=== PATIENT | female | born 1995 | race African-American/Black ===

== ENCOUNTER 2017-05-10 08:01 | Emergency (ER) | payer OTHER ==
[2017-05-10 08:05] VITALS: BP 127/70
[2017-05-10] MEDS ORDERED: ACETAMINOPHEN 650 MG/20.3 ML SOLUTION. PO ONE (08:45)
[2017-05-10] MEDS ORDERED: DEXAMETHASONE SOD PHOS 10 MG/ML VIAL PO ONE (08:45)
[2017-05-10] MEDS ORDERED: KETOROLAC 60 MG/2 ML VIAL. IM ONE (08:45)
[2017-05-10] MEDS ORDERED: NAPR275T59 PO (08:50)
[2017-05-10] MEDS ORDERED: AZIT250T6 PO (08:50)
[2017-05-10] MEDS ORDERED: ACET325T9 PO (08:50)
--- NOTE | 2017-05-10 08:50 | PHYS DOC ---
Past History Past Medical History: No Pertinent History Past Surgical History: No Surgical History Alcohol Use: Occasionally Drug Use: None Adult General Chief Complaint Chief Complaint: SORE THROAT HPI HPI Patient is a pleasant 22-year-old female with a one-month history of sore throat. She's been seen by her primary care doctor to look her throat and saw no exudates swelling or erythema and told her it was likely a virus. At this point patient pain is gotten worse although she's got no change in voice, anterior neck swelling or fullness, she's had low-grade fevers nothing documented no headache neck pain but has had a nonproductive cough. She does also describes significant fatigue over the last several weeks. She admits she' s had multiple sick contacts at home and her place work. Patient denies any travel outside the country, denies any antibiotic use or other complaints. She denies any joint pain or swelling, rash or back pain. Review of Systems Review of Systems Constitutional: Denies fever or chills [] Eyes: Denies change in visual acuity, redness, or eye pain [] HENT: Denies nasal congestion or sore throat [] Respiratory: Denies cough or shortness of breath [] Cardiovascular: No additional information not addressed in HPI [] GI: Denies abdominal pain, nausea, vomiting, bloody stools or diarrhea [] : Denies dysuria or hematuria [] Musculoskeletal: Denies back pain or joint pain [] Integument: Denies rash or skin lesions [] Neurologic: Denies headache, focal weakness or sensory changes [] Endocrine: Denies polyuria or polydipsia [] Current Medications Current Medications Current Medications Medications (Trade) Dose Ordered Sig/Apurva Start Time Stop Time Status Last Admin Dose Admin Acetaminophen (Tylenol) 650 mg 1X ONCE 05/10/17 08:45 05/10/17 08:46 Dexamethasone Sodium Phosphate (Decadron) 10 mg 1X ONCE 05/10/17 08:45 05/10/17 08:46 Ketorolac Tromethamine (Toradol) 60 mg 1X ONCE 05/10/17 08:45 05/10/17 08:46 Allergies Allergies Allergies Coded Allergies Type Severity Reaction Last Updated Verified No Known Drug Allergies 05/10/17 No Physical Exam Physical Exam Vital signs recorded on the chart it is noted the patient is located. 100.9 and a mild tachycardia which is appropriate for fever. Constitutional: Well developed, well nourished, no acute distress, non-toxic appearance. [] HENT: Normocephalic, atraumatic, bilateral external ears normal, oropharynx moist, patient has significant erythema she has tonsillar crypts that are inflamed with exudates. There is no tonsillar hypertrophy there are +2 without uvular edema, palatal lesions, or evidence of cellulitis.[] Eyes: PERRLA, EOMI, conjunctiva normal, no discharge. [] Neck: Normal range of motion, no tenderness, supple, no stridor. Mild anterior cervical lymphadenopathy. Cardiovascular:Heart rate regular rhythm, no murmur [] Lungs & Thorax: Bilateral breath sounds clear to auscultation [] Skin: Warm, dry, no erythema, no rash. [] Extremities: No tenderness, no cyanosis, no clubbing, ROM intact, no edema. [] Neurologic: Alert and oriented X 3, normal speech[] Psychologic: Affect normal, judgement normal, mood normal. [] Current Patient Data Vital Signs Vital Signs Date Time Temp Pulse Resp B/P (MAP) Pulse Ox O2 Delivery O2 Flow Rate FiO2 05/10/17 08:05 100.9 107 16 100 Room Air EKG EKG [] Radiology/Procedures Radiology/Procedures [] Course & Med Decision Making Course & Med Decision Making Pertinent Labs and Imaging studies reviewed. (See chart for details) she presents with a sore throat for a month with physical exam findings consistent with a exudative pharyngitis given the duration of her symptoms and her negative rapid strep test do not believe this is strep at this may represent some other viral syndrome or mononucleosis. Different causes of sore throat are listed below although we cannot test for most of them we will screen her for mono group A strep treat her empirically. In given duration of her symptoms it' ll slightly I will start her on something empiric for mycoplasma pneumonia versus supportive care for Cole-Marino an outpatient with azithromycin. Bacteria Group A streptococci Group C streptococci Group G streptococci Less common bacterial pathogens Chlamydophila pneumoniae (TWAR) Mycoplasma pneumoniae Arcanobacterium haemolyticum Corynebactrium diphtheriae Fusobacterium necrophorum Neisseria gonorrheae Treponema pallidum Francisella tularensis Viruses Rhinovirus Adenovirus Influenza A and B Parainfluenza Coxsackievirus Coronavirus Echovirus Herpes simplex virus Cole Marino virus Human immunodeficiency virus Cytomegalovirus Respiratory syncytial virus Metapneumovirus[] Dragon Disclaimer Dragon Disclaimer This chart was dictated in whole or in part using Voice Recognition software in a busy, high-work load, and often noisy Emergency Department environment. It may contain unintended and wholly unrecognized errors or omissions. Departure Departure: Impression: Primary Impression: Pharyngitis Additional Impression: Fever Disposition: 01 HOME, SELF-CARE Condition: STABLE Patient Instructions: Viral and Bacterial Pharyngitis Additional Instructions: My discharge plan Follow up: In addition patient is asked to followup with their primary doctor, within a week for followup examination and to address patient's ongoing medical conditions. Because patient does not have a regular medical doctor, a local physician Resource Sheet will be provided to establish care primary care. Patient is advised that in the Emergency Department primary complaints are addressed and only in light of known signs and symptoms. Patient should return immediately to the emergency department if new signs and symptoms develop or patient's condition worsens in any way. At time of discharge patient was in stable condition and had verbalized understanding of the discharge instructions. Scripts Acetaminophen (TYLENOL) 325 Mg Tablet 1-2 TAB PO QID, #30 TAB 2 Refills Prov: IAN CABA MD 05/10/17 Naproxen Sodium (NAPROXEN SODIUM) 275 Mg Tablet 275 MG PO BID for 7 Days, #14 TAB Prov: IAN CABA MD 05/10/17 Azithromycin (AZITHROMYCIN TABLET) 250 Mg Tablet 250 MG PO DAILY for ANTI-BIOTIC for 5 Days, #6 TAB 0 Refills Please take 2 times the first day Please take one tablet day 2 through 5. Prov: IAN CABA MD 05/10/17 Problem Qualifiers IAN CABA MD May 10, 2017 08:50
[2017-05-10 08:58] LABS: MONONUCLEOSIS PATIENT NEGATIVE (NEGATIVE)
[2017-05-10 09:23] LABS: INFLUENZA A PATIENT NEGATIVE (NEGATIVE); INFLUENZA B PATIENT NEGATIVE (NEGATIVE)
== END 2017-05-10 09:00 | disposition home or self-care (01) ==
LOC: ER 08:01
DX: J02.9 Acute pharyngitis, unspecified (principal)
CPT/HCPCS: 86308; 87070; 87804; 87880; 96372; 99284; J1100; J1885

== ENCOUNTER 2017-07-05 17:38 | Emergency (ER) | payer OTHER ==
[~2017-07-05 17:38] MED LIST: ACET325T9 PO; AZIT250T6 PO; NAPR275T59 PO
--- NOTE | 2017-07-05 18:17 | ED.ADGEN ---
Past History Past Medical History: No Pertinent History Past Surgical History: No Surgical History Alcohol Use: Occasionally Drug Use: None Adult General Chief Complaint Chief Complaint " I ve been having cramps... and I think I ve been since Apr... and now I got some vaginal discharge..." HPI HPI Patient is a 22 year old female who presents with above complaints. Patient states she believes she's been since approximately April. Patient has had 3 previous pregnancies of vaginal delivery. Patient has had previous episodes of STDs. The last episode ST was chlamydia. Patient last delivery approximately 7 months ago. Patient localizes her lower abdomen discomfort and cramping in the pelvic area. No recent trauma. No specific ill contacts. Patient denies any history of immunosuppression. Patient states the vaginal discharge has started last few days. Review of Systems Review of Systems Constitutional: Denies fever or chills [] Eyes: Denies change in visual acuity, redness, or eye pain [] HENT: Denies nasal congestion or sore throat [] Respiratory: Denies cough or shortness of breath [] Cardiovascular: No additional information not addressed in HPI [] GI: History of abdominal pain, nausea,. Denies vomiting, bloody stools or diarrhea [] : Denies dysuria or hematuria. Patient complains of vaginal discharge Musculoskeletal: Denies back pain or joint pain [] Integument: Denies rash or skin lesions [] Neurologic: Denies headache, focal weakness or sensory changes [] Endocrine: Denies polyuria or polydipsia [] All other systems were reviewed and found to be within normal limits, except as documented in this note. Family History Family History Noncontributory Current Medications Current Medications Current Medications Medications (Trade) Dose Ordered Sig/Apurva Start Time Stop Time Status Last Admin Dose Admin Ceftriaxone Sodium 1 gm/ Sodium Chloride 50 ml @ 100 mls/hr 1X ONCE 07/05/17 20:30 07/05/17 20:59 DC 07/05/17 20:27 100 MLS/HR Sodium Chloride 1,000 ml @ 1,000 mls/hr Q1H 07/05/17 18:30 07/05/17 19:29 DC 07/05/17 20:02 1,000 MLS/HR Allergies Allergies Allergies Coded Allergies Type Severity Reaction Last Updated Verified No Known Drug Allergies 05/10/17 No Physical Exam Physical Exam Constitutional: Well developed, well nourished, no acute distress, non-toxic appearance. [] HENT: Normocephalic, atraumatic, bilateral external ears normal, oropharynx moist, no oral exudates, nose normal. [] Eyes: PERRLA, EOMI, conjunctiva normal, no discharge. [] Neck: Normal range of motion, no tenderness, supple, no stridor. [] Cardiovascular:Heart rate regular rhythm, no murmur [] Lungs & Thorax: Bilateral breath sounds equal at apexes with scattered wheezes auscultation [] Abdomen: Bowel sounds normal, soft, no tenderness, no masses, no pulsatile masses. Mild suprapubic tenderness. Vaginal exam shows some cervicitis and discharge. Os is closed. Some mild cervical motion tenderness. heart rate in the 150 range. Skin: Warm, dry, no erythema, no rash. [] Back: No tenderness, no CVA tenderness. [] Extremities: No tenderness, no cyanosis, no clubbing, ROM intact, no edema. No psoas or heeltap findings. Neurologic: Alert and oriented X 3, normal motor function, normal sensory function, no focal deficits noted. DTR + 2 patella and brachial. Psychologic: Affect normal, judgement normal, mood normal. [] Current Patient Data Vital Signs Vital Signs Date Time Temp Pulse Resp B/P (MAP) Pulse Ox O2 Delivery O2 Flow Rate FiO2 07/05/17 18:00 98.3 84 16 98 Room Air Lab Results Laboratory Tests Test 07/05/17 18:35 07/05/17 18:55 07/05/17 19:22 Urine Collection Type Unknown Urine Color Yellow Urine Clarity Clear Urine pH 6.5 Urine Specific [place] 1.025 Urine Protein Trace (NEG-TRACE) Urine Glucose (UA) Neg mg/dL (NEG) Urine Ketones (Stick) Trace mg/dL (NEG) Urine Blood Neg (NEG) Urine Nitrite Neg (NEG) Urine Bilirubin Neg (NEG) Urine Urobilinogen Dipstick 1 mg/dL (0.2 mg/dL) Urine Leukocyte Esterase Neg (NEG) Urine RBC 0 /HPF (0-2) Urine WBC Occ /HPF (0-4) Urine Squamous Epithelial Cells Mod /LPF Urine Amorphous Sediment Present /HPF Urine Bacteria 0 /HPF (0-FEW) Urine Mucus Mod /LPF Urine Test Positive (NEG) Urine Opiates Screen Neg (NEG) Urine Methadone Screen Neg (NEG) Urine Barbiturates Neg (NEG) Urine Phencyclidine Screen Neg (NEG) Urine Amphetamine/Methamphetamine Neg (NEG) Urine Benzodiazepines Screen Neg (NEG) Urine Cocaine Screen Neg (NEG) Urine Cannabinoids Screen Neg (NEG) Urine Ethyl Alcohol Neg (NEG) White Blood Count 8.5 x10^3/uL (4.0-11.0) Red Blood Count 4.37 x10^6/uL (3.50-5.40) Hemoglobin 11.5 g/dL (12.0-15.5) L Hematocrit 34.0 % (36.0-47.0) L Mean Corpuscular Volume 78 fL (79-100) L Mean Corpuscular Hemoglobin 26 pg (25-35) Mean Corpuscular Hemoglobin Concent 34 g/dL (31-37) Red Cell Distribution Width 15.7 % (11.5-14.5) H Platelet Count 204 x10^3/uL (140-400) Neutrophils (%) (Auto) 65 % (31-73) Lymphocytes (%) (Auto) 27 % (24-48) Monocytes (%) (Auto) 7 % (0-9) Eosinophils (%) (Auto) 1 % (0-3) Basophils (%) (Auto) 1 % (0-3) Neutrophils # (Auto) 5.6 x10^3uL (1.8-7.7) Lymphocytes # (Auto) 2.3 x10^3/uL (1.0-4.8) Monocytes # (Auto) 0.6 x10^3/uL (0.0-1.1) Eosinophils # (Auto) 0.0 x10^3/uL (0.0-0.7) Basophils # (Auto) 0.0 x10^3/uL (0.0-0.2) Prothrombin Time 9.8 SEC (9.4-11.4) Prothrombin Time INR 1.0 (0.9-1.1) PTT 24 SEC (23-33) Maternal Serum HCG Beta Subunit 08931 mIU/mL (0-6) H Sodium Level 139 mmol/L (136-145) Potassium Level 3.7 mmol/L (3.5-5.1) Chloride Level 103 mmol/L (98-107) Carbon Dioxide Level 24 mmol/L (21-32) Anion Gap 12 (6-14) Blood Urea Nitrogen 10 mg/dL (7-20) Creatinine 0.5 mg/dL (0.6-1.0) L Estimated GFR (Cockcroft-Gault) 183.4 Glucose Level 97 mg/dL (70-99) Calcium Level 9.4 mg/dL (8.5-10.1) Total Bilirubin 0.1 mg/dL (0.2-1.0) L Direct Bilirubin 0.1 mg/dL (0.0-0.2) Aspartate Amino Transferase (AST) 11 U/L (15-37) L Alanine Aminotransferase (ALT) 13 U/L (14-59) L Alkaline Phosphatase 38 U/L (46-116) L Total Protein 7.4 g/dL (6.4-8.2) Albumin 3.0 g/dL (3.4-5.0) L Lipase 155 U/L (73-393) POC Urine HCG, Qualitative hcg positive (Negative) Microbiology 07/05/17 Wet Prep - Final, Complete Laboratory Tests Test 07/05/17 18:35 07/05/17 18:55 07/05/17 19:22 Urine Collection Type Unknown Urine Color Yellow Urine Clarity Clear Urine pH 6.5 Urine Specific [place] 1.025 Urine Protein Trace (NEG-TRACE) Urine Glucose (UA) Neg mg/dL (NEG) Urine Ketones (Stick) Trace mg/dL (NEG) Urine Blood Neg (NEG) Urine Nitrite Neg (NEG) Urine Bilirubin Neg (NEG) Urine Urobilinogen Dipstick 1 mg/dL (0.2 mg/dL) Urine Leukocyte Esterase Neg (NEG) Urine RBC 0 /HPF (0-2) Urine WBC Occ /HPF (0-4) Urine Squamous Epithelial Cells Mod /LPF Urine Amorphous Sediment Present /HPF Urine Bacteria 0 /HPF (0-FEW) Urine Mucus Mod /LPF Urine Test Positive (NEG) Urine Opiates Screen Neg (NEG) Urine Methadone Screen Neg (NEG) Urine Barbiturates Neg (NEG) Urine Phencyclidine Screen Neg (NEG) Urine Amphetamine/Methamphetamine Neg (NEG) Urine Benzodiazepines Screen Neg (NEG) Urine Cocaine Screen Neg (NEG) Urine Cannabinoids Screen Neg (NEG) Urine Ethyl Alcohol Neg (NEG) White Blood Count 8.5 x10^3/uL (4.0-11.0) Red Blood Count 4.37 x10^6/uL (3.50-5.40) Hemoglobin 11.5 g/dL (12.0-15.5) L Hematocrit 34.0 % (36.0-47.0) L Mean Corpuscular Volume 78 fL (79-100) L Mean Corpuscular Hemoglobin 26 pg (25-35) Mean Corpuscular Hemoglobin Concent 34 g/dL (31-37) Red Cell Distribution Width 15.7 % (11.5-14.5) H Platelet Count 204 x10^3/uL (140-400) Neutrophils (%) (Auto) 65 % (31-73) Lymphocytes (%) (Auto) 27 % (24-48) Monocytes (%) (Auto) 7 % (0-9) Eosinophils (%) (Auto) 1 % (0-3) Basophils (%) (Auto) 1 % (0-3) Neutrophils # (Auto) 5.6 x10^3uL (1.8-7.7) Lymphocytes # (Auto) 2.3 x10^3/uL (1.0-4.8) Monocytes # (Auto) 0.6 x10^3/uL (0.0-1.1) Eosinophils # (Auto) 0.0 x10^3/uL (0.0-0.7) Basophils # (Auto) 0.0 x10^3/uL (0.0-0.2) Prothrombin Time 9.8 SEC (9.4-11.4) Prothrombin Time INR 1.0 (0.9-1.1) PTT 24 SEC (23-33) Maternal Serum HCG Beta Subunit 33259 mIU/mL (0-6) H Sodium Level 139 mmol/L (136-145) Potassium Level 3.7 mmol/L (3.5-5.1) Chloride Level 103 mmol/L (98-107) Carbon Dioxide Level 24 mmol/L (21-32) Anion Gap 12 (6-14) Blood Urea Nitrogen 10 mg/dL (7-20) Creatinine 0.5 mg/dL (0.6-1.0) L Estimated GFR (Cockcroft-Gault) 183.4 Glucose Level 97 mg/dL (70-99) Calcium Level 9.4 mg/dL (8.5-10.1) Total Bilirubin 0.1 mg/dL (0.2-1.0) L Direct Bilirubin 0.1 mg/dL (0.0-0.2) Aspartate Amino Transferase (AST) 11 U/L (15-37) L Alanine Aminotransferase (ALT) 13 U/L (14-59) L Alkaline Phosphatase 38 U/L (46-116) L Total Protein 7.4 g/dL (6.4-8.2) Albumin 3.0 g/dL (3.4-5.0) L Lipase 155 U/L (73-393) POC Urine HCG, Qualitative hcg positive (Negative) Microbiology 07/05/17 Wet Prep - Final, Complete EKG EKG [] Radiology/Procedures Radiology/Procedures Ultrasound shows an intrauterine with a heart rate of 145. Estimated 17 weeks 3 days.[] Course & Med Decision Making Course & Med Decision Making Pertinent Labs and Imaging studies reviewed. (See chart for details). Patient to push fluids. Patient may take Tylenol for discomfort. Patient follow-up cultures. Patient take Keflex 500 mg 3 times a day for the next 7 days. Allow pelvic rest. Would take a vitamin or at least to chewable [place] vitamins. Patient encouraged to stop smoking. Return if any concerns. [] Final Impression Final Impression 1. Abdomen pain 2. Intrauterine -estimated 17 weeks and 3 days 3. Cervicitis 4. Blood type A+ 5. Anemia 6. Tobacco use 7. Beta hCG 37, 632[] Problems: Dragon Disclaimer Dragon Disclaimer This electronic medical record was generated, in whole or in part, using a voice recognition dictation system. ERINN GARZA MD Jul 05, 2017 18:17
[2017-07-05] MEDS ORDERED: IV NORMAL SALINE 1,000ML 1,000 ML IV SCH (18:30)
[2017-07-05 19:01] LABS: BACTERIA,URINE 0 /HPF (0-FEW); BILIRUBIN,URINE NEG (NEG); CLARITY,URINE CLEAR; COLOR,URINE YELLOW; GLUCOSE,URINE NEG (NEG); NITRITE,URINE NEG (NEG); RBC,URINE 0 /HPF (0-2); SQUAMOUS EPITHELIAL CELL,UR MOD /LPF; UROBILINOGEN,URINE 1 mg/dL (0.2 mg/dL); WBC,URINE OCC /HPF (0-4)
[2017-07-05 19:02] LABS: AMORPHOUS SEDIMENT,UR PRESENT /HPF; U PREG PATIENT POSITIVE (NEG)
[2017-07-05 19:07] LABS: BARBITURATES NEG (NEG); BENZODIAZEPINES NEG (NEG); CANNABINOIDS NEG (NEG); COCAINE NEG (NEG); METHADONE NEG (NEG); OPIATES NEG (NEG); PHENCYCLIDINE NEG (NEG)
[2017-07-05 19:08] LABS: AMPHETAMINE/METHAMPHETAMINE NEG (NEG)
[2017-07-05 19:10] LABS: BASO % 1 % (0-3); EOS % 1 % (0-3); HEMOGLOBIN 11.5 g/dL (12.0-15.5); LYMPH # 2.3 x10^3/uL (1.0-4.8); LYMPH % 27 % (24-48); MEAN CORPUSCULAR HEMOGLOBIN 26 pg (25-35); MEAN CORPUSCULAR HGB CONC 34 g/dL (31-37); MEAN CORPUSCULAR VOLUME 78 fL (79-100); MONO # 0.6 x10^3/uL (0.0-1.1); MONO % 7 % (0-9); NEUT # 5.6 x10^3uL (1.8-7.7); NEUT % 65 % (31-73); PLATELET COUNT 204 x10^3/uL (140-400); RED BLOOD COUNT 4.37 x10^6/uL (3.50-5.40); RED CELL DISTRIBUTION WIDTH 15.7 % (11.5-14.5); WHITE BLOOD COUNT 8.5 x10^3/uL (4.0-11.0)
[2017-07-05 19:25] LABS: CALCIUM 9.4 mg/dL (8.5-10.1); CREATININE 0.5 mg/dL (0.6-1.0); DIRECT BILIRUBIN 0.1 mg/dL (0.0-0.2); GFR 183.4; POTASSIUM 3.7 mmol/L (3.5-5.1); TOTAL BILIRUBIN 0.1 mg/dL (0.2-1.0); TOTAL PROTEIN 7.4 g/dL (6.4-8.2)
--- NOTE | 2017-07-05 20:09 | RAD ---
EXAM: Obstetrics sonogram. HISTORY: Unsure dates. Right pelvic pain. TECHNIQUE: Sonographic imaging of the pelvis was performed. COMPARISON: None. FINDINGS: There is a single intrauterine fetus in cephalic presentation with a heart rate of 145 bpm. There is a grade 0 anterior placenta without evidence of placenta previa. The amniotic fluid is normal. The anatomy is not formally assessed. The biparietal diameter is 3.91 cm, corresponding with 17 weeks and 6 days. The head circumference is 14.4 cm, corresponding with 17 weeks and 4 days. The abdominal circumference is 11.7 cm, corresponding with 17 weeks and 3 days. The femoral length is 2.2 cm, corresponding to 16 weeks and 6 days. The estimated gestational age based on combined ultrasound measurements is 17 weeks and 3 days. The estimated weight is 7 ounces. The head circumferential abdominal circumference ratio is 1.23. The ovaries are normal in size and demonstrate normal blood flow. The cervix is long and closed, measuring 4.1 cm. IMPRESSION: 1. Single intrauterine fetus with a heart rate of 145 bpm and estimated gestational age based on ultrasound measurements of 17 weeks and 3 days. 2. Unremarkable maternal ovaries. 3. A formal anatomy survey at approximately 20 weeks gestation is recommended. Electronically signed by: Edwige Harp MD (07/05/2017 8:05 PM) [id number]
[2017-07-05] MEDS ORDERED: IV NORMAL SALINE 50ML 50 ML ONE (20:23)
[2017-07-05] MEDS ORDERED: cefTRIAXone SODIUM 1 GM VIAL IV ONE (20:24)
[2017-07-05] MEDS ORDERED: CEPH-264 PO (20:24)
[2017-07-05 21:15] VITALS: BP 124/70
[2017-07-07 14:08] LABS: CHLAMYDIA PROBE Negative (Negative)
[2017-07-07 16:10] LABS: HCV ANTIBODY <0.1 s/co ratio (0.0-0.9); HEP A IGM ABDY Negative (Negative)
== END 2017-07-05 21:20 | disposition home or self-care (01) ==
LOC: ER 17:38
DX: O26.892 Other specified pregnancy related conditions, second trimester (principal); O46.92 Antepartum hemorrhage, unspecified, second trimester; O99.012 Anemia complicating pregnancy, second trimester; O23.512 Infections of cervix in pregnancy, second trimester; Z3A.17 17 weeks gestation of pregnancy
CPT/HCPCS: 36415; 76815; 80048; 80074; 80076; 80307; 81001; 81025; 83690; 84702; 85025; 85610; 85730; 86592; 86593; 86701; 86702; 86703; 86900; 86901; 87491; 87535; 87591; 96365; 99285; J0696; Q0111; G0479; J7030